=== PATIENT | female | born 1930 | race Caucasian/White ===

== ENCOUNTER 2017-06-26 09:21 | Inpatient (IN) ==
[2017-06-26 09:47] LABS: MANUAL DIFF NEEDED? NO
[2017-06-26 09:50] LABS: BASO% 0.3 % (0.0-0.8); EOS# 0.18 X1000 (0.0-0.7); EOS% 2.3 % (0.0-10.0); HEMATOCRIT 40.1 % (37.0-47.0); HEMOGLOBIN 13.8 g/dL (12.0-16.0); IMM GRAN# 0.02 X1000 (0.0-0.04); IMM GRAN% 0.3 % (0.0-0.5); LYMPH# 2.18 X1000 (1.2-3.4); LYMPH% 28.1 % (20.5-51.1); MCH 28.6 PG (27-31); MCHC 34.4 g/dL (33-37); MONO# 0.44 X1000 (0.11-0.59); MONO% 5.7 % (1.7-9.3); MPV 10.7 FL (7.4-10.4); NEUT% 63.3 % (42.2-75.2); PLT 146 X1000 (130-400); RBC 4.83 XMIL (4.2-5.4)
[2017-06-26 10:02] LABS: PROTIME 10.5 Seconds (9.2-11.7); PTT 26.7 Seconds (22.0-36.0)
--- NOTE | 2017-06-26 10:10 | ED EKG INTERP ---
This chart was entered by Aletha Florentino Scribe, acting as scribe for Blair Birmingham MD. EKG Interpretation - EKG Time of EKG reading by physician:: 09:27 EKG Read and Signed by:: Blair Birmingham EKG Interpretation (*Must complete 3 of following elements*): Abnormal Rate: 84 Rhythm: Sinus rhythm with 1st degree AV block [place]: normal Attestation - Physician/ FRITZ Attestation Patient care was provided by Advanced Practice Provider:: No The physician spent face to face time with patient:: Yes Advanced Practice Provider documentation review:: Supervising physician onsite and consulted in the evaluation and care of this patient. The physician did have a face to face encounter with the patient. This chart was documented by the indicated scribe, (Aletha Florentino Scribe) and accurately reflects the services I performed and decisions made by me, Blair Birmingham MD, as attested by the provider's signature.
[2017-06-26 11:12] LABS: ALBUMIN 4.4 g/dL (3.5-5.0); CALCIUM 10.2 mg/dL (8.8-10.2); MAGNESIUM 1.6 mg/dL (1.5-2.7); POTASSIUM 3.8 mmol/L (3.5-5.1); TOTAL BILIRUBIN 0.69 mg/dL (0.20-1.00); TOTAL PROTEIN 7.3 g/dL (6.3-8.3)
--- NOTE | 2017-06-26 11:16 | EKG Report ---
Test Performed on : 06/26/2017 09:27:40 AM Test Reason : chest pain Blood Pressure : / mmHG Vent. Rate : 084 BPM Atrial Rate : 084 BPM P-R Int : 258 ms QRS Dur : 090 ms QT Int : 380 ms P-R-T Axes : 078 -09 049 degrees QTc Int : 449 ms Sinus rhythm. with 1st degree AV block. Anterior infarct (cited on or before 03-AUG-2015) Abnormal ECG When compared with ECG of 03-AUG-2015 09:26, Questionable change in QRS axis Unconfirmed Result
--- NOTE | 2017-06-26 11:20 | Diag Imaging Result Doc PS360 ---
EXAM: CHEST-2 VIEWS HISTORY: CP/coughing up blood TECHNIQUE: PA and lateral chest COMMENT: There is apical pleural thickening bilaterally. There is no evidence of acute cardiac or pulmonary disease. There is a granuloma in the right upper lobe and calcified nodes in the right tracheobronchial region. IMPRESSION: Old granulomatous changes. No evidence of acute disease. Electronically signed by Moses Moseley 06/26/2017 11:17 AM
--- NOTE | 2017-06-26 12:52 | Diag Imaging Result Doc PS360 ---
CT ANGIOGRM/PULMONARY ARTERIES - 06/26/2017 INDICATION: spitting up blood TECHNIQUE: Axial CT images were obtained after administering intravenous contrast. Coronal MIP images were generated. A CT dose reduction protocol was used. COMPARISON: None FINDINGS: There is no pulmonary embolism. Heart and great vessels are normal. There is calcified vascular disease of the aortic arch and distal aorta. Upper abdominal images are unremarkable. There is a small hiatal hernia. Airways are clear. There is some dependent linear atelectasis or scarring in the lung bases. There are moderate degenerative changes of the spine. No acute or suspicious bony lesion. IMPRESSION: Negative exam. Electronically signed by Wellington Medina 06/26/2017 12:49 PM
[2017-06-26] MEDS ORDERED: ROCEPHIN 1 GM in NS 50 ML IV ONE (13:23)
[2017-06-26] MEDS: NS 1,000 ML IV SCH (15:55)
[2017-06-26] MEDS ORDERED: ZOFRAN IV PRN (16:06)
[2017-06-26] MEDS ORDERED: TYLENOL PO PRN (16:06)
[2017-06-26] MEDS ORDERED: ULTRAM PO PRN (16:06)
[2017-06-26] MEDS ORDERED: NITROGLYCERIN SL PRN (16:06)
--- NOTE | 2017-06-26 16:32 | HISTORY AND PHYSICAL ---
PRIMARY CARE PROVIDER: Dr. Pavel Wood CHIEF COMPLAINT: Coughing up blood. HISTORY OF PRESENT ILLNESS: Ms. Yolanda Shankar is an 86-year-old, , elderly female with a medical history of hypertension, pre-diabetes, chronic kidney disease and skin cancer, who states that she had been having some on-and-off pain that would radiate from her left back to the front of her left chest that would come and go. Sometimes it would last a few minutes, sometimes it would last half the day. It would not cause any dizziness, but one time she did get a little sweaty with it. Denied nausea or vomiting. Denies diarrhea. So she presented to her primary care provider, Dr. Pavel Wood, in office on Friday, who felt that maybe she had possibly had a light myocardial infarction after he viewed an abnormal EKG. He set up an appointment with Dr. Meyers for July 14, and started her on 325 mg of aspirin a day. Last night, she noticed when she woke up that there was blood on her pillow. She does not necessarily cough up the blood, it comes up into her mouth, and it appears to be anywhere from old to red blood, and large coagulated amounts from time to time since last night. Her hemoglobin and hematocrit are stable at 13 and 40. Her vital signs are stable. She denies any chest pain at this time. Will admit for close observation, consult Pulmonary over possible bronchoscopy. Imaging revealed that she does not have a pulmonary emboli. She had a pulmonary arteriogram which was essentially negative. The chest x-ray only showed old granulomatous changes. She is afebrile. Her white count is normal. Her lactate is normal. We will hold aspirin and follow recommendations of Pulmonary. Also will do a cardiac workup and, if needed, we will consult Cardiology. Otherwise, will allow her to keep her July 14 appointment. 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 SURGICAL HISTORY: Cholecystectomy, right nose surgery. She has had common bile duct stone. SOCIAL HISTORY: Denies ever smoking, denies alcohol. She lives at home by herself in [place] next to her son. She walks without any sort of assistive devices. FAMILY HISTORY: Positive for diabetes mellitus type 2, chronic kidney disease and hypertension. REVIEW OF SYSTEMS: Fourteen-point review of systems was completed and all were negative, except for those mentioned above in HPI. Her last chest pains apparently were either this past Friday or Friday, she was unsure. She does have the occasional cough, but essentially the blood comes up without any stimulation, other than when she sits up it comes up more frequent. Denies fever or chills. She denies any blood in the urine or stool. ALLERGIES: Simvastatin and sulfonamide. HOME MEDICATIONS: Aspirin four 81 mg p.o. daily, Microzide 12.5 mg p.o. daily, labetalol 200 mg p.o. twice daily, Centrum Silver tablet 1 tab p.o. daily, nitroglycerin 0.4 mg sublingual p.r.n., Ultram 50 mg p.o. twice daily p.r.n. PHYSICAL EXAMINATION: VITAL SIGNS: Temperature is 97.6 degrees, heart rate 82, respiratory rate 18, blood pressure 163/83, O2 saturation 95% on room air. She is 5 feet 0 inches tall, 131 pounds , with a BMI of 25.6. GENERAL: Ms. Yolanda Shankar is an 86-year-old, female. She is in no acute distress. She is able answer questions appropriately. HEENT: She has had post-surgical skin cancer excisions that are healed along the right naris and in the middle of her forehead. Otherwise, atraumatic, normocephalic. There is some old dried blood around her lips. Mucous membranes are dry. Pupils are equal, round and reactive to light. Extraocular movements are intact. NECK: Trachea midline. CARDIOVASCULAR: S1, S2. Regular rate and rhythm. No rubs, gallops, murmurs. She has no carotid bruits. JVD negative. No lower extremity edema. She has +2 dorsalis and radial pulses. GASTROINTESTINAL: Soft, nontender, nondistended. Positive bowel sounds. NEUROLOGIC: A and O x4. Moves all extremities equally. Cranial nerves and sensory are intact. EXTREMITIES: Moves all extremities equally. SKIN: Warm, dry, intact. LABORATORY DATA: White blood cells 7000, hemoglobin 13, hematocrit 40, platelet count 146,000. INR is 1.02, PTT is 26.7. D-dimer 0.69. Sodium 143, potassium 3.8, BUN 28, creatinine is 1.1, glucose 129. Magnesium 1.6. Bilirubin 0.69, AST 21, ALT 20. CK 97, troponin is less than 0.01. ProBNP is 313. Urinalysis pending. IMAGIN. Pulmonary arteriogram, secondary to a mildly elevated D-dimer: There is no pulmonary emboli. There is calcified vascular disease of the aortic arch in distal aorta. 2. Upper abdominal images are unremarkable. There is a small hiatal hernia. Airways are clear. There is some dependent linear atelectasis or scarring at the lung bases. 3. Chest x-ray: Old granulomatous changes. ASSESSMENT AND PLAN: 1. Hemoptysis. She had started aspirin on Friday. Apparently, it was 481 mg tablet. It was started as he felt like she had a possible mild ND. She is currently not only taking just 81 mg, but she was taking 4 tablets, so she started having some blood on her pillowcase last night. She states when she sits up that it comes up easier, and it just comes up into her mouth with or without coughing. Currently, her hemoglobin and hematocrit are stable, so we will continue to monitor. Will consult Pulmonary, as this could possibly be coming from the lungs. It is really unknown. We will check a stool for positive blood just in case, unless she is swallowing, then it could be positive. 2. Atypical chest pains. Will do cardiac serial cardiac enzymes. Check an echocardiogram. If she starts having chest pains here, could consult Cardiology. Otherwise, we can keep her appointment that is scheduled for June with Dr. Meyers. 3. Pre-diabetes. Apparently, she has been checking her blood glucoses at home, but only diet- controlled. We will do pattern blood glucoses. 4. Chronic kidney disease, stage 1 or 2. We will do IV fluid hydration. 5. Hypertension. We will continue her home medications. 6. Deep venous thrombosis prophylaxis. Sequential compression devices only, as we are holding aspirin. Dictated by MILA García for Shon Salazar MD Addendum: Patient seen and examined by myself. Agree with MILA note. It reflects my assessment and plan. Patient is basically admitted to hospital for hemoptysis. She was just started on Aspirin 325 mg for chest pain and at this time she is not noticing. Will check troponins. Will do an echo and will consult Pulmonary and will check BMP daily to see if this is acute or chronic kidney disease. Will continue medications for anxiety and high blood pressure. The CT angio of chest did not reveal any pulmonary embolism or pneumonia. Will monitor her closely. cc: MILA García MD MTDChristopher
--- NOTE | 2017-06-26 17:57 | PROVIDER DOCUMENTATION ---
This chart was entered by Aletha Florentino Scribe, acting as scribe for Blair Birmingham MD. HPI-General Adult - General Chief Complaint: Cough Stated Complaint: cp Time Seen by Provider: 06/26/17 10:38 Source: patient Allergies/Adverse Reactions: Patient Allergies Allergy/AdvReac Type Severity Reaction Status Date / Time simvastatin [From Zocor] Allergy NAUSEA Verified 08/08/15 16:30 Sulfa (Sulfonamide Allergy NAUSEA/VOMI Verified 08/08/15 16:30 Antibiotics) TING Home Medications: Home Medication List Medication Instructions Recorded Confirmed Last Taken Type Hydrochlorothiazide [Microzide] 12.5 mg PO DAILY 08/03/15 06/26/17 06/26/17 06: 30 History Labetalol [Trandate] 200 mg PO BID 08/03/15 06/26/17 06/26/17 06:30 History Aspirin 81 mg PO DAILY 06/26/17 06/26/17 06/26/17 06:30 History Multivit-Min/FA/Lycopen/Lutein 1 each PO DAILY 06/26/17 06/26/17 06/26/17 06:30 History [Centrum Silver Tablet] Nitroglycerin Sl [Nitroglycerin] 0.4 mg SL PRN PRN 06/26/17 06/26/17 Unknown History Tramadol HCl [Ultram] 50 mg PO BID PRN 06/26/17 06/26/17 Unknown History Vit C/E/Zn/Coppr/Lutein/Zeaxan 1 each PO DAILY 06/26/17 06/26/17 06/26/17 06:30 History [Preservision Areds 2 Softgel] - History of Present Illness -Gen Adult Nature of Presenting Problems: 86 yo WF presents to ED with cc of spitting up blood since 3 a.m. Pt denies cough and vomiting. She reports awaking to blood on her pillow early this a.m. and to spitting out mouthfuls of blood. Pt's daughter reports witnessing the spitting. Pt reports being put on aspirin by her primary care doctor 4 days ago after an EKG revealed a hx of possible mild CA. Pt reports her last dose was yesterday afternoon. Upon arrival to ED, pt is afebrile, nontoxic in appearance , and in no apparent distress. Severity: reports: mild, moderate Onset/Duration: reports: 4-6 hours ago Timing: reports: still present, intermittent Context/Activities at Onset: reports: sleep Associated Symptoms: reports: other (spitting out blood from unknown origin). denies: anxiety, cough, fever/chills, nausea, vomiting Similar Symptoms Previously?: No Recently seen or treated by another doctor?: Yes (Put on aspirin by PCP 4 days ago) Review of Systems - Adult - REVIEW OF SYSTEMS - ADULT Constitutional: reports: no symptoms reported. denies: chills, fever Eyes: reports: no symptoms reported. denies: blurred vision, double vision Ears, Nose, Mouth & Throat: reports: no symptoms reported. denies: ear pain, sinus problem Cardiovascular: reports: chest pain (L side to lateral aspect) Respiratory: reports: no symptoms reported. denies: cough, shortness of breath Gastrointestinal: reports: no symptoms reported. denies: abdominal pain, nausea , vomiting Genitourinary: reports: no symptoms reported. denies: flank pain, hematuria Musculoskeletal: reports: no symptoms reported. denies: back pain, neck pain Integumentary: reports: no symptoms reported. denies: itching, skin sores/ulcer Neurological: reports: no symptoms reported. denies: dizziness/vertigo, headache/migraines Psychiatric: reports: no symptoms reported. denies: anxiety, depression Endocrine: reports: no symptoms reported Hematologic/Lymphatic: reports: other (blood in mouth from unknown origin). denies: blood clots, low blood count, transfusions Allergic/Immunologic: reports: no symptoms reported. denies: allergic reactions , eczema All Other Systems: Reviewed and Negative Past History - Adult - PAST MEDICAL HISTORY-ADULT Review of Records: reports: Old Records Reviewed, Nursing Assessment Review, Medications Reviewed - IMMUNIZATION STATUS Childhood Immunizations: See Nurse Assessment Flu Vaccine: See Nurse Assessment - SOCIAL HISTORY Smoking: denies, non-smoker Physical Exam-General - PHYSICAL EXAM-ADULT Initial Vital Signs Reviewed: Yes - CONSTITUTIONAL General Appearance: alert, no apparent distress - EYES Eyes: PERRL/EOMI, pink conjunctivae. negative: subconjunctival hemorrhage - HEAD, EARS, NOSE, MOUTH & THROAT HENMT: normocephalic/atraumatic, moist mucous membranes, other (visible blood in pt's mouth) - NECK Neck: non-tender, full range of motion, supple - RESPIRATORY Respiratory: chest non-tender, lungs clear, decreased breath sounds (R base). negative: crackles, rales, rhonchi, stridor, wheezing - CARDIOVASCULAR Cardiovascular: normal peripheral pulses, regular rate, rhythm, no edema, no gallop, no murmur - GASTROINTESTINAL (ABDOMEN) Abdominal Exam: normal bowel sounds, non tender, soft - LYMPHATIC Lymphatic: no adenopathy - MUSCULOSKELETAL Back Exam: normal inspection Extremity: non-tender - SKIN Integumentary: normal color, normal turgor - NEUROLOGIC Neurologic: grossly normal, no motor/sensory deficits - PSYCHIATRIC Psych/Mental Status: normal mood/affect, normal thought content, normal thought process, oriented x 3 Progress - PLAN OF CARE/RESULTS Progress/Plan/Lab Results: Vital Signs - 8 hr 06/26/17 09:30 Temperature 97.6 F Pulse Rate 88 Respiratory Rate 18 Blood Pressure 153/77 O2 Sat by Pulse Oximetry 98 Laboratory Results - last 24 hr 06/26/17 06/26/17 06/26/17 09:38 09:38 09:38 WBC 7.76 RBC 4.83 Hgb 13.8 Hct 40.1 MCV 83.0 MCH 28.6 MCHC 34.4 RDW Std Deviation 13.9 Plt Count 146 MPV 10.7 H Immature Gran % (Auto) 0.3 Neut % (Auto) 63.3 Lymph % (Auto) 28.1 [place] % (Auto) 5.7 Eos % (Auto) 2.3 Baso % (Auto) 0.3 Immature Gran # (Auto) 0.02 Neut # (Auto) 4.92 Lymph # (Auto) 2.18 [place] # (Auto) 0.44 Eos # (Auto) 0.18 Baso # (Auto) 0.02 PT 10.5 INR 1.00 PTT (Actin FS) 26.7 D-Dimer 0.65 H Orders Category Date Time Status CHEST-2 VIEWS [RAD] Stat Exams 06/26/17 09:38 Ordered CBC WITH ELECTRONIC DIFF [HEME] Stat Lab 06/26/17 09:38 Completed CK PROFILE [SP CHEM] Stat Lab 06/26/17 09:38 Received COMPREHENSIVE METABOLIC PANEL [CHEM] Stat Lab 06/26/17 09:38 Received D-DIMER [CHEM] Stat Lab 06/26/17 09:38 Completed MAGNESIUM [CHEM] Stat Lab 06/26/17 09:38 Received PRO B-NATRIURETIC PEPTIDE Stat Lab 06/26/17 09:38 Received PROTIME WITH INR [COAG] Stat Lab 06/26/17 09:38 Completed PTT [COAG] Stat Lab 06/26/17 09:38 Completed TROPONIN T Stat Lab 06/26/17 09:38 Received EKG [EKG] Stat Ther 06/26/17 09:35 Ordered Result Diagrams: 06/26/17 09:38 06/26/17 09:38 - REASSESSMENT Reassessment #1 Time Reassessed: 13:22 Status: unchanged Reassessment Comment: Update pt on current results and course; plan to admit - XRAY 1 XRAY Study: Chest Impression: Abnormal (COMMENT: There is apical pleural thickening bilaterally. There is no evidence of acute cardiac or pulmonary disease. There is a granuloma in the right upper lobe and calcified nodes in the right tracheobronchial region.) XRAY Interpretation: NAD; old granulomatous changes (per radiology) - CT/MRI 1 CT Study: Angiogram Impression: Abnormal (FINDINGS: There is no pulmonary embolism. Heart and great vessels are normal. There is calcified vascular disease of the aortic arch and distal aorta. Upper abdominal images are unremarkable. There is a small hiatal hernia. Airways are clear. There is some dependent linear atelectasis or scarring in the lung bases. There are moderate degenerative changes of the spine. No acute or suspicious bony lesion.) CT Results: Negative exam (per radiology) - CONSULTS/PCP/HOSPITALIST Notification #1 *Consult/PCP/Hospitalist*: Dr. Guzman Time Discussed: 13:28 Reason/Comments: Admit Consult Disposition: Will see in ED Departure - Departure Date of Disposition Decision: 06/26/17 Time of Disposition Decision: 13:32 DIAGNOSIS: Hemoptysis Disposition: ADMITTED INPATIENT 09 Certified Medical Emergency: Emergent Condition: Stable - Critical Care Note This patient required my direct & personal management of CC.: No Attestation - Physician/ FRITZ Attestation Patient care was provided by Advanced Practice Provider:: No The physician spent face to face time with patient:: Yes Advanced Practice Provider documentation review:: Supervising physician onsite and consulted in the evaluation and care of this patient. The physician did have a face to face encounter with the patient. This chart was documented by the indicated scribe, (Aletha Florentino Scribe) and accurately reflects the services I performed and decisions made by me, Blair Birmingham MD, as attested by the provider's signature.
[2017-06-26] MEDS: TRANDATE PO SCH (21:55)
[2017-06-26] MEDS: PRILOSEC PO SCH (21:56)
[2017-06-26 22:20] LABS: URINE CULTURE NEEDED? NO; URINE MICRO REVIEW NEEDED? NO; URINE SOURCE CLEAN CATCH
[2017-06-26 22:25] LABS: BILIRUBIN URINE NEGATIVE (NEGATIVE); BLOOD URINE NEGATIVE (NEGATIVE); COLOR YELLOW; GLUCOSE URINE NEGATIVE (NEGATIVE); LEUKOCYTES URINE NEGATIVE (NEGATIVE); NITRITE URINE NEGATIVE (NEGATIVE); PROTEIN URINE 30 mg/dL (NEGATIVE); SP GRAVITY URINE 1.024; TURBIDITY URINE CLEAR (CLEAR); UR EPITHELIAL CELLS <10 /HPF (<10); URINE BACTERIA NEGATIVE /HPF; URINE RBC <10 /HPF (<10); URINE WBC <10 /HPF (<10); UROBILINOGEN URINE NORMAL (NORMAL)
[2017-06-27] MEDS: NS 1,000 ML IV SCH (04:55)
--- NOTE | 2017-06-27 06:48 | EKG Report ---
Test Performed on : 06/27/2017 06:20:30 AM Test Reason : chest pain Blood Pressure : / mmHG Vent. Rate : 076 BPM Atrial Rate : 076 BPM P-R Int : 280 ms QRS Dur : 090 ms QT Int : 410 ms P-R-T Axes : 045 -14 053 degrees QTc Int : 461 ms Sinus rhythm. with 1st degree AV block. 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
[2017-06-27 08:11] LABS: MANUAL DIFF NEEDED? NO
[2017-06-27 08:15] LABS: BASO% 0.3 % (0.0-0.8); EOS# 0.18 X1000 (0.0-0.7); EOS% 2.5 % (0.0-10.0); HEMATOCRIT 39.7 % (37.0-47.0); HEMOGLOBIN 13.4 g/dL (12.0-16.0); IMM GRAN# 0.03 X1000 (0.0-0.04); IMM GRAN% 0.4 % (0.0-0.5); LYMPH# 2.11 X1000 (1.2-3.4); LYMPH% 29.8 % (20.5-51.1); MCH 27.9 PG (27-31); MCHC 33.8 g/dL (33-37); MCV 82.7 FL (81-99); MONO# 0.44 X1000 (0.11-0.59); MONO% 6.2 % (1.7-9.3); MPV 10.4 FL (7.4-10.4); NEUT% 60.8 % (42.2-75.2); PLT 141 X1000 (130-400)
[2017-06-27 08:28] LABS: INR 1.04; PROTIME 10.9 Seconds (9.2-11.7); PTT 27.7 Seconds (22.0-36.0)
--- NOTE | 2017-06-27 08:54 | CONSULTATION ---
DATE OF CONSULTATION: 06/27/2017 REFERRING PHYSICIAN: Dr. Guzman. CHIEF COMPLAINT: Hemoptysis. HISTORY OF PRESENT ILLNESS: This is an 86-year-old, female with past medical history of hypertension, CKD and skin cancer that presented to the hospital after a couple of episodes of coughing up blood. She states that she recently began taking aspirin and woke up with blood on her pillow. The blood varies in color and texture and amount, but has not yet been significant. She denies any fever, chills, palpitations, abdominal pain, nausea, vomiting or diarrhea. She has been having intermittent chest pain and is scheduled to follow up with cardiology. REVIEW OF SYSTEMS: A 10-point review of systems was conducted. Pertinents noted in HPI, otherwise noncontributory. PAST MEDICAL HISTORY: As mentioned in the HPI, otherwise noncontributory. PAST SURGICAL HISTORY: Cholecystectomy, right nasal surgery. ALLERGIES: Simvastatin and sulfonamide. FAMILY HISTORY: Notable for diabetes, chronic kidney disease and hypertension. SOCIAL HISTORY: The patient lives at home alone. Denies use of tobacco, alcohol or illicit drugs. ACTIVE MEDICATIONS:: Tylenol, Trandate, Centrum, nitroglycerin, Prilosec, Zofran, Ultram. PHYSICAL EXAMINATION: Vital Signs: Blood pressure 166/68, heart rate 87, respiratory rate 14, temperature 98.5 degrees, oxygen saturation 95%. General: Awake, alert, no acute distress noted. HEENT: Normocephalic and atraumatic. PERRL. Cardiovascular: S1, S2 present. Chest: Reduced entry. Abdomen: Soft, nontender, nondistended. Bowel sounds present in all quadrants. Extremities: Distal pulses palpable. Neurologic: No focal deficits. LABS AND INVESTIGATIONS: Troponin was negative. Creatine kinase 95. Pulmonary arteriogram was negative. Chest x-ray is also negative. ASSESSMENT AND PLAN: This is an 86-year-old, female with past medical history mentioned in the history of present illness, who presented to the hospital after Spitting up blood on her pillow. Continue holding anticoagulants. Prilosec given for gastrointestinal prophylaxis. Cardiac enzymes have been negative thus far. General rehydration for her chronic kidney disease. Sequential compression devices for deep vein thrombosis prophylaxis. Further recommendations pending diagnostic studies. CT lungs showed no pathology and no PE. Possibly bleeding source is GI or ENT. If not better, it is worthwhile to consider laryngoscopy by ENT, given the history of facial surgery. Thank you for the courtesy of this consultation. Dictated by MILA Naidu for Emani Malone MD cc: MILA Naidu MD [facility]
[2017-06-27 08:56] LABS: ALBUMIN 4.2 g/dL (3.5-5.0); CALCIUM 9.9 mg/dL (8.8-10.2); POTASSIUM 3.4 mmol/L (3.5-5.1); TOTAL BILIRUBIN 0.84 mg/dL (0.20-1.00); TOTAL PROTEIN 6.4 g/dL (6.3-8.3)
[2017-06-27] MEDS: PRILOSEC PO SCH ×2 (10:40→21:45)
[2017-06-27] MEDS: TRANDATE PO SCH ×2 (10:41→21:45)
[2017-06-27] MEDS: CENTRUM SILVER PO SCH (10:41)
[2017-06-27] MEDS: PATIENT'S OWN MED PO SCH (10:42)
[2017-06-27] MEDS ORDERED: KLOR-CON PO ONE (15:20)
--- NOTE | 2017-06-27 17:07 | PROGRESS NOTE ---
DATE: 06/27/2017 SUBJECTIVE: Patient is feeling fine. She denies any coughing blood, actually she denies any cough at all, what happened according to the patient and family who is at bedside is that while she was sleeping she noticed some blood that apparently came from the mouth but not because she was coughing. She denies any abdominal pain, nausea, vomiting. OBJECTIVE: Vital Signs: Temperature 97.9 degrees, heart rate 84, respiratory 16, blood pressure 153/76, O2 saturation 93% on room air. General Examination: This is an 86-year-old female lying in bed in no acute distress. HEENT: Head is normocephalic, atraumatic. She has a postsurgical skin cancer excisions in the nose. Neck: Supple. No JVD noted. No carotid bruits. Cardiovascular: S1, S2 heard. No murmurs, gallops, or rubs. Regular rate and rhythm. Respiratory: Clear bilaterally to auscultation. No work of breathing or using accessory muscles. Abdomen: Soft, nontender to palpation. Bowel sounds present. No organomegaly. Extremities: No clubbing, cyanosis, or edema. Peripheral pulses present in both legs. Neurologic: Patient alert, oriented x3. Able to move 4 extremities. Cranial nerves 2 through 12 grossly normal. LABORATORY DATA: CBC is unremarkable. BMP shows creatinine 0.9 with potassium 3.4. ASSESSMENT AND PLAN: 1. Hemoptysis. Patient was admitted to the hospital for an episode of hemoptysis. Also in the emergency room she was checked before D-dimer which was elevated so a CT angiogram of the chest was done which basically did not show any pulmonary embolism or any lung tissue infection. She is not on any blood thinners and she was recently started on aspirin 321 for chest pain that she started noticing 1 week ago. She is not complaining of any chest pain. She is not complaining of any shortness of breath. Pulmonary has been consulted, will follow recommendations. 2. Atypical chest pain. At this point this patient does not have any chest pain. Patient had the symptoms 1-2 weeks ago and she was scheduled for appointment with Dr. Meyers, patient relations liaison in July 14. Troponin has been checked and all those 3 were normal. 3. Chronic kidney disease. Actually this is acute kidney injury and the renal function is back to normal. 4. Hypertension. Will continue home medications. 5. Disposition. I am planning to keep this patient 1 more day. Even though this patient is not complaining of any abdominal pain, nausea, vomiting, weight loss and for rule out any abnormality in the GI tract we are going to do a CT of the abdomen without contrast. It that is normal and the CBC shows stable hemoglobin will send this patient home tomorrow. cc: Shon Salazar MD
--- NOTE | 2017-06-27 17:41 | Diag Imaging Result Doc PS360 ---
EXAM: CT ABDOMEN/PELVIS W/O CONTRAST INDICATION: gi bleeding TECHNIQUE: Dose reduction protocol was used. COMPARISON: None. FINDINGS: There is bibasilar subsegmental atelectasis. There are calcified granulomata in the liver and the spleen. There has been a previous cholecystectomy. There is a small hiatal hernia. The adrenal glands and pancreas are unremarkable. There is bilateral nonobstructing nephrolithiasis. There is no hydronephrosis. Urinary bladder is grossly unremarkable. There is a large uterus with multiple coarse calcifications indicative of uterine leiomyomas. There is sigmoid colonic diverticulosis but there is no evidence of diverticulitis. There is increased stool throughout the colon suggesting possible constipation. There is no obstructive bowel pattern. The remainder of the GI tract is essentially unremarkable. No focal inflammatory changes, free abdominal gas, or free fluid is appreciated. There is extensive aortoiliac atherosclerotic calcification. There is no evidence of aortic aneurysm. IMPRESSION: 1.Uncomplicated diverticulosis coli. 2.Possible constipation. 3.Nonobstructive nephrolithiasis. 4.Other incidental/nonacute findings detailed above. Electronically signed by Abhijeet Sarmiento 06/27/2017 5:39 PM
--- NOTE | 2017-06-27 18:38 | ECHO REPORT ---
ORDER DATE: 06/27/2017 MEASUREMENTS: Left ventricular end-diastolic diameter 3.0, end-systolic diameter 1.9. Septal thickness 1.4, posterior wall thickness 1.4, aortic root 3.3. Left atrium 3.5. SUMMARY: 1. Technically difficult study due to limited acoustic window quality. Intravenous echo contrast agent Definity was utilized to enhance endocardial definition. 2. Moderate aortic valve sclerosis demonstrated with adequate aortic valve opening evident. Peak gradient across aortic valve is 10-15 mmHg. Mitral, tricuspid and pulmonic valves are without evidence of structural abnormality with trace mitral regurgitation and mild tricuspid regurgitation. The estimated systolic PA pressure by Doppler is 30 mmHg. Aortic root is normal size. 3. Normal left ventricular chamber size with mild to moderate concentric left hypertrophy is demonstrated. Estimated left ejection fraction appears to be at least 70%. No regional wall motion abnormalities evident. Left atrium, right atrium and right ventricle are normal in size with normal right ventricular systolic function. 4. No pericardial effusion. 5. Appearance of inferior vena cava suggests normal central venous pressure. CONCLUSIONS: 1. Technically difficult study. 2. Aortic valve sclerosis without stenosis. 3. Mild to moderate concentric technically difficult study. 4. Moderate aortic valve sclerosis without stenosis. 5. Mild tricuspid regurgitation with estimated systolic PA pressure of 30 mmHg. 6. Mild to moderate concentric left hypertrophy with estimated ejection fraction at least 70%. cc: MD Jacqueline Villar CRNP
[2017-06-28 05:31] LABS: MANUAL DIFF NEEDED? NO
[2017-06-28 05:34] LABS: BASO% 0.3 % (0.0-0.8); EOS% 2.6 % (0.0-10.0); HEMATOCRIT 37.9 % (37.0-47.0); HEMOGLOBIN 12.9 g/dL (12.0-16.0); IMM GRAN# 0.02 X1000 (0.0-0.04); IMM GRAN% 0.3 % (0.0-0.5); LYMPH# 2.31 X1000 (1.2-3.4); LYMPH% 29.8 % (20.5-51.1); MCH 28.4 PG (27-31); MCV 83.3 FL (81-99); MONO# 0.53 X1000 (0.11-0.59); MONO% 6.8 % (1.7-9.3); MPV 10.3 FL (7.4-10.4); NEUT% 60.2 % (42.2-75.2); PLT 142 X1000 (130-400); RBC 4.55 XMIL (4.2-5.4)
[2017-06-28 06:11] LABS: CALCIUM 8.9 mg/dL (8.8-10.2); POTASSIUM 4.3 mmol/L (3.5-5.1)
[2017-06-28] MEDS: TRANDATE PO SCH (08:47)
[2017-06-28] MEDS: PRILOSEC PO SCH (08:48)
[2017-06-28] MEDS: CENTRUM SILVER PO SCH (08:48)
[2017-06-28] MEDS: PATIENT'S OWN MED PO SCH (08:48)
[2017-06-28 12:22] VITALS: BP 149/74
--- NOTE | 2017-06-28 17:29 | DISCHARGE SUMMARY ---
ADMISSION DATE: 06/26/2017 DISCHARGE DATE: 06/28/2017 DISCHARGE DIAGNOSES: 1. Hemoptysis resolved. 2. Atypical chest pain acute coronary syndrome ruled out. 3. Acute kidney injury improved. 4. Hypertension under control. CONSULTATION: Dr. Malone from Pulmonary. CT angiogram of the chest showed no pulmonary embolism, no pneumonia. Abdomen and pelvis CT showed uncomplicated diverticulosis, possible constipation, nonobstructive nephrolithiasis. Echocardiogram showed aortic valve sclerosis, mild tricuspid regurgitation, ejection fraction of at least 70%. HOSPITAL COURSE: This is a 86-year-old female with a history of hypertension, chronic kidney disease, skin cancer who was admitted to the hospital because her primary care provider Dr. Pavel Wood saw her in the office because she was she was complaining of chest pain. She was scheduled an appointment for cardiology. At this time she presented to the emergency department because she was apparently have some blood in her pillow but she denies any cough or nausea or vomiting. For suspicion of hemoptysis patient was admitted to the hospital. Evaluated in the ER for pulmonary embolism or acute coronary syndrome and also we have checked an echocardiogram and so far everything returned negative. She has not had any more episodes of this bleeding. No nausea, vomiting, cough and because all this workup has returned negative we are going to send this patient home and followup with primary care physician in a week. EXAMINATION: General: This is an 86-year-old female lying in bed in no acute distress. Vitals: 97.9, heart rate 78, respiratory 16, blood pressure 149/74, O2 saturation 98% on room air. HEENT: Head is normocephalic, atraumatic with postsurgical skin cancer excisions in the nose. Neck: Supple. No JVD noted. No carotid bruits. No lymphadenopathy. No thyromegaly. Cardiovascular: S1, S2 heard. No murmurs, gallops, or rubs. Regular rate and rhythm. Respiratory: Clear bilaterally to auscultation. No work of breathing or using accessory muscles. Abdomen: Soft, nontender to palpation. Bowel sounds present. No organomegaly. Extremities: No clubbing, cyanosis, or edema. Peripheral pulses present in both legs. Neurologic: Patient alert, oriented x3. Moves 4 extremities. Cranial nerves 2-12 grossly normal. DISCHARGE DISPOSITION: To home to self-care. MEDICATIONS: 1. Omeprazole 20 mg p.o. b.i.d. 2. Labetalol 200 mg p.o. b.i.d. 3. Hydrochlorothiazide 12.5 mg 1 tablet p.o. daily. 4. Aspirin 81 mg 1 tablet p.o. daily. 5. Tramadol 50 mg p.o. b.i.d. as needed for pain. 6. Multivitamins 1 tablet p.o. daily. FOLLOWUP: With primary care physician in 1-2 weeks. cc: Shon Salazar MD
== END 2017-06-28 15:03 | disposition home or self-care (01) ==
LOC: ED 09:21 → EDIPHOLD 16:09 → 4N 17:50
PROVIDERS: ATTEND Internal Medicine